=== PATIENT | female | born 1995 | race Two or more races ===

== ENCOUNTER 2016-07-14 09:03 | Emergency (ER) | payer SELFPAY ==
[~2016-07-14] VITALS: Ht 144.8 cm; Wt 52.2 kg
[~2016-07-14 09:03] MED LIST: CIPROFLOXACIN500 M2 ORAL; KEFLEX500 MG ORAL; NKM; NORCO 5-325 TA1 EACH; ZOFRAN4 MG
[2016-07-14] MEDS ORDERED: NKM (09:26)
[2016-07-14] MEDS ORDERED: Famotidine 20 MG/ 2ML VIAL IVP ONE (09:45)
[2016-07-14 10:19] LABS: BASOPHILS % (AUTO) 1.4 % (0.0-2.0); EOSINOPHILS % (AUTO) 10.3 % (0.0-3.0); LYMPHOCYTES % (AUTO) 34.6 % (20.0-45.0); MEAN CORPUSCULAR HEMOGLOBIN 24.9 PG (27.0-31.0); MEAN CORPUSCULAR HGB CONC 31.7 G/DL (32.0-36.0); MEAN CORPUSCULAR VOLUME 79 FL (80-99); MEAN PLATELET VOLUME 7.3 FL (6.5-10.1); MONOCYTES % (AUTO) 6.5 % (1.0-10.0); NEUTROPHILS % (AUTO) 47.2 % (45.0-75.0); PLATELET COUNT 251 K/UL (150-450); RED BLOOD COUNT 4.79 M/UL (4.20-5.40); RED CELL DISTRIBUTION WIDTH 16.9 % (11.6-14.8); WHITE BLOOD COUNT 6.5 K/UL (4.8-10.8)
[2016-07-14 10:26] LABS: APPEARANCE,URINE SLIGHTLY CLOUDY; KETONES,URINE NEGATIVE (NEGATIVE); LEUKOCYTE ESTERASE ,URINE 3+ (NEGATIVE); NITRITE,URINE NEGATIVE (NEGATIVE); PH,URINE 5 (4.5-8.0); PROTEIN,URINE 1+ (NEGATIVE); UROBILINOGEN,URINE NORMAL MG/DL (0.0-1.0)
[2016-07-14 10:39] LABS: ALANINE AMINOTRANSFERASE 11 U/L (3-33); ALBUMIN/GLOBULIN RATIO 1.6 (1.0-2.7); ANION GAP 12 (5-15); ASPARTATE AMINO TRANSFERASE 14 U/L (5-40); CALCIUM 8.8 mg/dL (8.6-10.2); CARBON DIOXIDE 26 mEQ/L (20-30); CHLORIDE 103 mEQ/L (98-107); CREATININE 0.6 mg/dL (0.5-0.9); GLOMERULAR FILTRATION RATE > 60 mL/min (>60); HEMOLYSIS 3; LIPASE 22 U/L (< 60); POTASSIUM 4.1 mEQ/L (3.4-4.9); SODIUM 141 mEQ/L (135-145); TOTAL PROTEIN 6.3 g/dL (6.6-8.7)
[2016-07-14 10:52] LABS: BACTERIA,URINE MODERATE /HPF; MUCUS,URINE MODERATE /LPF (NONE/OCC); RBC,URINE 0-2 /HPF (0 - 2); SQUAMOUS EPITHELIAL CELL,UR MANY /LPF (NONE/OCC)
[2016-07-14] MEDS ORDERED: BENTYL10 MG ORAL (11:05)
[2016-07-14] MEDS ORDERED: KEFLEX500 MG ORAL (11:05)
[2016-07-14] MEDS ORDERED: ZOFRAN ODT4 MG ORAL (11:05)
[2016-07-14] MEDS ORDERED: RANITIDINE HCL150 MG ORAL (11:05)
[2016-07-14] MEDS ORDERED: Morphine Sulfate 4mg/ml Inj IVP ONE (11:15)
[2016-07-14 11:30] VITALS: BP 100/56
[2016-07-14 11:57] VITALS: BP 100/56
--- NOTE | 2016-07-14 13:14 | Emergency Room Report ---
History of Present Illness General Chief Complaint: Abdominal Pain Source: Patient Present Illness HPI 20-year-old female presents to ED for evaluation. Patient states she's having abdominal pain with nausea and vomiting which started yesterday and got worse today. Pain is epigastric, sharp, 9/10, nonradiating. No other aggravating or relieving factors. Denies chest pain or shortness of breath. Denies fevers chills. Denies flank pain. Denies dysuria or hematuria. No aggravating or relieving factors. Denies any other associated symptom Allergies: Coded Allergies: No Known Allergies (Unverified , 08/13/14) Patient History Past Medical History: none Past Surgical History: none Pertinent Family History: none Social History: Denies: alcohol use, drug use, smoking Last Menstrual Period: 07/07/2016 Now: No : 1 Para: 1 Immunizations: UTD Reviewed Nursing Documentation: PMH: Agreed, PSxH: Agreed Nursing Documentation-PMH Past Medical History: No Stated History Review of Systems All Other Systems: negative except mentioned in HPI Physical Exam Vital Signs Date Time Temp Pulse Resp B/P Pulse Ox O2 Delivery O2 Flow Rate FiO2 07/14/16 09:21 97.7 69 16 125/70 99 Room Air Sp02 EP Interpretation: reviewed, normal General Appearance: no apparent distress, alert, GCS 15, non-toxic Head: normocephalic, atraumatic Eyes: bilateral eye PERRL, bilateral eye normal inspection ENT: hearing grossly normal, normal pharynx, no angioedema, normal voice Neck: full range of motion, supple/symm/no masses Respiratory: chest non-tender, lungs clear, normal breath sounds, speaking full sentences Cardiovascular #1: regular rate, rhythm, no edema Cardiovascular #2: 2+ carotid (R), 2+ carotid (L), 2+ radial (R), 2+ radial (L) , 2+ dorsalis pedis (R), 2+ dorsalis pedis (L) Gastrointestinal: normal bowel sounds, soft, non-distended, no guarding, no rebound, tenderness - epigastric Rectal: deferred Genitourinary: normal inspection, no CVA tenderness Musculoskeletal: back normal, gait/station normal, normal range of motion, non- tender Neurologic: alert, oriented x3, responsive, motor strength/tone normal, sensory intact, speech normal Psychiatric: judgement/insight normal, memory normal, mood/affect normal, no suicidal/homicidal ideation Reflexes: 3+ bicep (R), 3+ bicep (L), 3+ tricep (R), 3+ tricep (L), 3+ knee (R) , 3+ knee (L) Skin: normal color, no rash, warm/dry, well hydrated Lymphatic: no adenopathy Medical Decision Making Diagnostic Impression: Primary Impression: Gastritis Qualified Codes: K29.00 - Acute gastritis without bleeding Additional Impression: UTI (urinary tract infection) Qualified Codes: N39.0 - Urinary tract infection, site not specified ER Course Hospital Course 20-year-old F presents to ED with epigastric pain with N/V. differential diagnosis: gastritis, SBO, cholecystits Clinical course Patient placed on stretcher. On monitor technician. After initial history and physical I ordered labs, IV fluids, Zofran and pepcid Labs - no leukocytosis, no electrolyte abnormalities, LFTs normal, UA + bacteria Upon reassessment, patient states pain has improved. findings consistent with gastritis I feel this is a highly complex case requiring extensive working including EKG/ Rhythm strip, Xray/CT/US, Blood/urine lab work, repeat exams while in ED, and administration of strong opiates/narcotics for pain control, admission to hospital or close patient follow up. Diagnosis - gastritis, UTI Stable and discharged to home with prescriptions for Zantac, zofran, keflex, bentyl. Followup with PMD. Return to ED if symptoms recur or worsen Labs Test 07/14/16 10:00 White Blood Count 6.5 K/UL (4.8-10.8) Red Blood Count 4.79 M/UL (4.20-5.40) Hemoglobin 11.9 G/DL (12.0-16.0) Hematocrit 37.6 % (37.0-47.0) Mean Corpuscular Volume 79 FL (80-99) Mean Corpuscular Hemoglobin 24.9 PG (27.0-31.0) Mean Corpuscular Hemoglobin Concent 31.7 G/DL (32.0-36.0) Red Cell Distribution Width 16.9 % (11.6-14.8) Platelet Count 251 K/UL (150-450) Mean Platelet Volume 7.3 FL (6.5-10.1) Neutrophils (%) (Auto) 47.2 % (45.0-75.0) Lymphocytes (%) (Auto) 34.6 % (20.0-45.0) Monocytes (%) (Auto) 6.5 % (1.0-10.0) Eosinophils (%) (Auto) 10.3 % (0.0-3.0) Basophils (%) (Auto) 1.4 % (0.0-2.0) Urine Color Yellow Urine Appearance Slightly cloudy Urine pH 5 (4.5-8.0) Urine Specific [place] 1.025 (1.005-1.035) Urine Protein 1+ (NEGATIVE) Urine Glucose (UA) Negative (NEGATIVE) Urine Ketones Negative (NEGATIVE) Urine Occult Blood Negative (NEGATIVE) Urine Nitrite Negative (NEGATIVE) Urine Bilirubin Negative (NEGATIVE) Urine Urobilinogen Normal MG/DL (0.0-1.0) Urine Leukocyte Esterase 3+ (NEGATIVE) Urine RBC 0-2 /HPF (0 - 2) Urine WBC 5-10 /HPF (0 - 2) Urine Squamous Epithelial Cells Many /LPF (NONE/OCC) Urine Bacteria Moderate /HPF (NONE) Urine Mucus Moderate /LPF (NONE/OCC) Urine HCG, Qualitative Negative Sodium Level 141 mEQ/L (135-145) Potassium Level 4.1 mEQ/L (3.4-4.9) Chloride Level 103 mEQ/L (98-107) Carbon Dioxide Level 26 mEQ/L (20-30) Anion Gap 12 (5-15) Blood Urea Nitrogen 13 mg/dL (7-23) Creatinine 0.6 mg/dL (0.5-0.9) Estimat Glomerular Filtration Rate > 60 mL/min (>60) Glucose Level 96 mg/dL (74-106) Calcium Level 8.8 mg/dL (8.6-10.2) Total Bilirubin 0.8 mg/dL (0.0-1.2) Aspartate Amino Transf (AST/SGOT) 14 U/L (5-40) Alanine Aminotransferase (ALT/SGPT) 11 U/L (3-33) Alkaline Phosphatase 62 U/L (35-104) Total Protein 6.3 g/dL (6.6-8.7) Albumin 3.9 g/dL (3.5-5.2) Globulin 2.4 g/dL Albumin/Globulin Ratio 1.6 (1.0-2.7) Lipase 22 U/L (< 60) Last Vital Signs Date Time Temp Pulse Resp B/P Pulse Ox O2 Delivery O2 Flow Rate FiO2 07/14/16 11:58 97.7 07/14/16 11:57 75 16 100/56 100 Room Air Status: improved Disposition: HOME, SELF-CARE Condition: Stable Scripts Dicyclomine Hcl* (BENTYL*) 10 Mg Capsule 10 MG ORAL FOUR TIMES A DAY, #20 CAP Prov: EDILBERTO THIBODEAUX M.D. 07/14/16 Ondansetron Odt* (ZOFRAN ODT*) 4 Mg Tab.rapdis 4 MG ORAL Q6H Y for Nausea & Vomiting, #30 TAB 0 Refills Prov: EDILBERTO THIBODEAUX M.D. 07/14/16 Ranitidine Hcl* (ZANTAC*) 150 Mg Tablet 150 MG ORAL TWICE A DAY, #30 TAB Prov: EDILBERTO THIBODEAUX M.D. 07/14/16 Cephalexin* (KEFLEX*) 500 Mg Capsule 500 MG ORAL Q6H, #28 CAP 0 Refills Prov: EDILBERTO THIBODEAUX M.D. 07/14/16 Patient Instructions: Gastritis, Adult, [id number] EDILBERTO THIBODEAUX M.D. Jul 14, 2016 13:13
== END 2016-07-14 12:19 | disposition home or self-care (01) ==
LOC: EMR 09:35
DX: K29.70 Gastritis, unspecified, without bleeding (principal); N39.0 Urinary tract infection, site not specified
CPT/HCPCS: 36415; 80053; 81003; 81025; 83690; 85025; 87086; 96360; 96374; 96375; 99284; J2270; J2405; J7040; S0028

== ENCOUNTER 2016-07-19 12:45 | Inpatient (IN) | payer SELFPAY ==
[~2016-07-19] VITALS: Ht 144.8 cm; Wt 54.0 kg
[~2016-07-19 12:45] MED LIST changes: +BENTYL10 MG ORAL; +RANITIDINE HCL150 MG ORAL; +ZOFRAN ODT4 MG ORAL
[2016-07-19 13:00] VITALS: BP 117/73
[2016-07-19] MEDS ORDERED: Famotidine 20 MG/ 2ML VIAL IVP ONE (13:30)
[2016-07-19 13:37] LABS: APPEARANCE,URINE CLEAR; KETONES,URINE NEGATIVE (NEGATIVE); LEUKOCYTE ESTERASE ,URINE 1+ (NEGATIVE); NITRITE,URINE NEGATIVE (NEGATIVE); PH,URINE 6.5 (4.5-8.0); PROTEIN,URINE NEGATIVE (NEGATIVE); UROBILINOGEN,URINE NORMAL MG/DL (0.0-1.0)
[2016-07-19 13:49] LABS: BACTERIA,URINE FEW /HPF; RBC,URINE 0-2 /HPF (0 - 2); SQUAMOUS EPITHELIAL CELL,UR OCCASIONAL /LPF (NONE/OCC)
[2016-07-19 13:51] LABS: BASOPHILS % (AUTO) 0.9 % (0.0-2.0); EOSINOPHILS % (AUTO) 7.6 % (0.0-3.0); LYMPHOCYTES % (AUTO) 27.7 % (20.0-45.0); MEAN CORPUSCULAR HEMOGLOBIN 25.1 PG (27.0-31.0); MEAN CORPUSCULAR VOLUME 79 FL (80-99); MEAN PLATELET VOLUME 7.2 FL (6.5-10.1); MONOCYTES % (AUTO) 7.1 % (1.0-10.0); NEUTROPHILS % (AUTO) 56.7 % (45.0-75.0); PLATELET COUNT 266 K/UL (150-450); RED BLOOD COUNT 4.83 M/UL (4.20-5.40); RED CELL DISTRIBUTION WIDTH 16.6 % (11.6-14.8); WHITE BLOOD COUNT 9.4 K/UL (4.8-10.8)
[2016-07-19 14:13] LABS: ALANINE AMINOTRANSFERASE 10 U/L (3-33); ALBUMIN/GLOBULIN RATIO 1.6 (1.0-2.7); ANION GAP 15 (5-15); ASPARTATE AMINO TRANSFERASE 15 U/L (5-40); CARBON DIOXIDE 26 mEQ/L (20-30); CHLORIDE 99 mEQ/L (98-107); CREATININE 0.8 mg/dL (0.5-0.9); GLOMERULAR FILTRATION RATE > 60 mL/min (>60); HEMOLYSIS 0; LIPASE 31 U/L (< 60); POTASSIUM 4.1 mEQ/L (3.4-4.9); SODIUM 140 mEQ/L (135-145); TOTAL PROTEIN 6.5 g/dL (6.6-8.7)
[2016-07-19 14:16] LABS: PROTHROMBIN TIME 10.3 SEC (9.30-11.50)
--- NOTE | 2016-07-19 15:28 | Emergency Room Report ---
History of Present Illness General Chief Complaint: Abdominal Pain Source: Patient (Yossi Houston) Present Illness HPI Patient is a 20-year-old female presented after having increased epigastric pain. Patient had gradual onset of symptoms of the past 2 days. Patient had previously had similar episodes and had been prescribed acid blockers without any improvement. Patient returned after having increased pain and vomiting. Patient denied any increased pain with Valsalva. She denied change spicy food. She denied any change with position. Patient denied being . (Yossi Houston) Allergies: Coded Allergies: FENTANYL (Verified Allergy, Severe, Elevated HR, rash, and SOB, 07/19/16) Patient History Past Medical History: see triage record Last Menstrual Period: 07/05/16 Now: No Reviewed Nursing Documentation: PMH: Agreed, PSxH: Agreed (Yossi Houston) Nursing Documentation-PMH Past Medical History: No Stated History (Yossi Houston) Review of Systems All Other Systems: negative except mentioned in HPI (Yossi Houston) Physical Exam Vital Signs Date Time Temp Pulse Resp B/P Pulse Ox O2 Delivery O2 Flow Rate FiO2 07/19/16 12:50 98.1 84 20 117/73 98 Room Air Sp02 EP Interpretation: reviewed, normal General Appearance: normal inspection, well appearing, no apparent distress, alert, GCS 15 Head: atraumatic ENT: normal ENT inspection, hearing grossly normal, normal voice Neck: normal inspection, full range of motion, supple, no bony tend Respiratory: normal inspection, lungs clear, normal breath sounds, no respiratory distress, no retraction, no wheezing Cardiovascular #1: regular rate, rhythm, no edema Gastrointestinal: normal inspection, normal bowel sounds, non tender, soft, no guarding, no hernia, tenderness - epigastric Genitourinary: no CVA tenderness Musculoskeletal: normal inspection, back normal, normal range of motion Neurologic: normal inspection, alert, responsive, speech normal Psychiatric: normal inspection, judgement/insight normal, mood/affect normal Skin: normal inspection, normal color, no rash (Yossi Houston) Medical Decision Making Diagnostic Impression: Primary Impression: Abdominal pain Qualified Codes: R10.13 - Epigastric pain Additional Impression: Allergic drug reaction Qualified Codes: T78.40XA - Allergy, unspecified, initial encounter ER Course Patient presented for abdominal pain. Differential diagnoses included ischemic bowel, appendicitis, perforated viscus, abdominal aortic aneurysm, inferior myocardial infarction, viral gastroenteritis Because of complexity of patient's case laboratory testing and imaging studies were ordered.Laboratory studies were unremarkableThe abdominal ultrasound was ordered to evaluate for possible gallstones. Labs Test 07/19/16 13:15 07/19/16 13:35 Urine Color Pale yellow Urine Appearance Clear Urine pH 6.5 (4.5-8.0) Urine Specific [place] 1.015 (1.005-1.035) Urine Protein Negative (NEGATIVE) Urine Glucose (UA) Negative (NEGATIVE) Urine Ketones Negative (NEGATIVE) Urine Occult Blood Negative (NEGATIVE) Urine Nitrite Negative (NEGATIVE) Urine Bilirubin Negative (NEGATIVE) Urine Urobilinogen Normal MG/DL (0.0-1.0) Urine Leukocyte Esterase 1+ (NEGATIVE) Urine RBC 0-2 /HPF (0 - 2) Urine WBC 2-4 /HPF (0 - 2) Urine Squamous Epithelial Cells Occasional /LPF Urine Bacteria Few /HPF (NONE) Urine HCG, Qualitative Negative White Blood Count 9.4 K/UL (4.8-10.8) Red Blood Count 4.83 M/UL (4.20-5.40) Hemoglobin 12.1 G/DL (12.0-16.0) Hematocrit 38.0 % (37.0-47.0) Mean Corpuscular Volume 79 FL (80-99) Mean Corpuscular Hemoglobin 25.1 PG (27.0-31.0) Mean Corpuscular Hemoglobin Concent 32.0 G/DL (32.0-36.0) Red Cell Distribution Width 16.6 % (11.6-14.8) Platelet Count 266 K/UL (150-450) Mean Platelet Volume 7.2 FL (6.5-10.1) Neutrophils (%) (Auto) 56.7 % (45.0-75.0) Lymphocytes (%) (Auto) 27.7 % (20.0-45.0) Monocytes (%) (Auto) 7.1 % (1.0-10.0) Eosinophils (%) (Auto) 7.6 % (0.0-3.0) Basophils (%) (Auto) 0.9 % (0.0-2.0) Prothrombin Time 10.3 SEC (9.30-11.50) Prothromb Time International Ratio 1.0 (0.9-1.1) Activated Partial Thromboplast Time 28 SEC (23-33) Sodium Level 140 mEQ/L (135-145) Potassium Level 4.1 mEQ/L (3.4-4.9) Chloride Level 99 mEQ/L (98-107) Carbon Dioxide Level 26 mEQ/L (20-30) Anion Gap 15 (5-15) Blood Urea Nitrogen 19 mg/dL (7-23) Creatinine 0.8 mg/dL (0.5-0.9) Estimat Glomerular Filtration Rate > 60 mL/min (>60) Glucose Level 103 mg/dL (74-106) Calcium Level 9.0 mg/dL (8.6-10.2) Total Bilirubin 0.3 mg/dL (0.0-1.2) Aspartate Amino Transf (AST/SGOT) 15 U/L (5-40) Alanine Aminotransferase (ALT/SGPT) 10 U/L (3-33) Alkaline Phosphatase 70 U/L (35-104) Total Protein 6.5 g/dL (6.6-8.7) Albumin 4.0 g/dL (3.5-5.2) Globulin 2.5 g/dL Albumin/Globulin Ratio 1.6 (1.0-2.7) Lipase 31 U/L (< 60) (Yossi Houston) ER Course Please see above note from Dr. Houston. The patient had delayed wait for ultrasound because an emergent procedure was being performed. So finally performed and this was unremarkable. The patient stated she was having increased amounts of pain. The patient was treated for pain. After receiving fentanyl the patient states that she started having itching around her neck and also felt weakness in her body. The patient was evaluated there was no rash on her neck. Benadryl was given to the patient. Patient was evaluated after Benadryl and at this point she was saying that her voice is weak. Differential includes adverse reaction to fentanyl, allergic reaction to fentanyl, adverse reaction to analgesia, psychogenic response. Although the latter is most probable, there is a possibility of an allergic reaction the patient is given Solu-Medrol and will be observed in the hospital. Admit telemetry to Dr. Dangelo. (Christian Sanabria M.D.) CT/MRI/US Diagnostic Results CT/MRI/US Diagnostic Results : Imaging Test Ordered: abdomen Impression normal gall bladder, pancreas, kidneys (Christian Sanabria M.D.) Last Vital Signs Date Time Temp Pulse Resp B/P Pulse Ox O2 Delivery O2 Flow Rate FiO2 07/19/16 13:00 98.1 84 20 117/73 98 Room Air Status: unchanged (Yossi Houston) Status: improved (Christian Sanabria M.D.) Disposition: ADMITTED INPATIENT Condition: Stable Scripts Tramadol Hcl* (ULTRAM*) 50 Mg Tablet 50 MG ORAL Q6H Y for For Pain, #8 TAB 0 Refills Prov: Christian Sanabria M.D. 07/19/16 Omeprazole (OMEPRAZOLE) 20 Mg Capsule.dr 20 MG ORAL DAILY, #30 CAP Prov: Christian Sanabria M.D. 07/19/16 Referrals: NOT CHOSEN LINDA/,REFERRING (PCP) Yossi Houston Jul 19, 2016 15:28 Christian Sanabria M.D. Jul 19, 2016 17:42
[2016-07-19 16:00] VITALS: BP 124/76
--- NOTE | 2016-07-19 17:44 | Diagnostic Imaging Report ---
Indications: Abdominal pain Technique: Transabdominal real-time grayscale and duplex Doppler imaging of the upper abdomen and retroperitoneum was performed. Findings: Comparison: None. Liver normal size and surface contour, parenchymal echogenicity. No focal lesions. Gallbladder unremarkable. No intraluminal stones or sludge. No mural thickening or adjacent fluid collections. Sonographic Tolliver sign not reported.. Bile ducts normal caliber. Common bile duct 4 mm. Pancreas visualized portions unremarkable. Spleen unremarkable. Right kidney unremarkable. Left kidney unremarkable. Abdominal aorta, intrahepatic portion of inferior vena cava patent, normal caliber. Duplex Doppler imaging demonstrates antegrade flow in splenic, portal, hepatic veins. No ascites. IMPRESSION: Negative abdominal ultrasound.
[2016-07-19] MEDS ORDERED: fentaNYL 100 mcg/2 mL IV ONE (17:45)
[2016-07-19] MEDS ORDERED: Mylanta II UD 30ml ORAL ONE (17:45)
[2016-07-19] MEDS ORDERED: OMEPRAZOLE20 M2 ORAL (17:48)
[2016-07-19] MEDS ORDERED: TRAMADOL HCL50 MG ORAL (17:48)
[2016-07-19 18:04] VITALS: BP 119/80
[2016-07-19] MEDS ORDERED: DiphenhydrAMINE 50mg/ml Inj IVP ONE (18:30)
[2016-07-19] MEDS ORDERED: Solu-MEDROL 125mg Inj IVP ONE (18:45)
[2016-07-19 20:31] VITALS: BP 114/79
[2016-07-19 21:13] VITALS: BP 110/72
[2016-07-20] VITALS: BP 110/68
[2016-07-20 04:20] VITALS: BP 122/57
[2016-07-20 07:20] LABS: ANION GAP 14 (5-15); CALCIUM 9.2 mg/dL (8.6-10.2); CARBON DIOXIDE 23 mEQ/L (20-30); CHLORIDE 104 mEQ/L (98-107); CREATININE 0.7 mg/dL (0.5-0.9); GLOMERULAR FILTRATION RATE > 60 mL/min (>60); HEMOLYSIS 3; POTASSIUM 4.2 mEQ/L (3.4-4.9); SODIUM 141 mEQ/L (135-145)
[2016-07-20 07:25] LABS: MEAN CORPUSCULAR HEMOGLOBIN 25.6 PG (27.0-31.0); MEAN CORPUSCULAR HGB CONC 32.5 G/DL (32.0-36.0); MEAN CORPUSCULAR VOLUME 79 FL (80-99); MEAN PLATELET VOLUME 7.7 FL (6.5-10.1); PLATELET COUNT 294 K/UL (150-450); RED BLOOD COUNT 5.05 M/UL (4.20-5.40); RED CELL DISTRIBUTION WIDTH 16.3 % (11.6-14.8); WHITE BLOOD COUNT 9.1 K/UL (4.8-10.8)
[2016-07-20 07:51] VITALS: BP 117/75
[2016-07-20 07:52] LABS: ANISOCYTOSIS 1+; BAND NEUTROPHILS % (MANUAL) 0 % (0-8); BASOPHILS % (MANUAL) 0 % (0-2); EOSINOPHILS % (MANUAL) 1 % (0-3); LYMPHOCYTES % (MANUAL) 11 % (20-45); MICROCYTES 1+; NEUTROPHILS % (MANUAL) 87 % (45-75); PLATELET ESTIMATE ADEQUATE; PLATELET MORPHOLOGY NORMAL; TOTAL CELLS COUNTED 100
[2016-07-20 08:16] LABS: TROPONIN I < 0.30 ng/mL (<=0.30)
[2016-07-20 11:32] VITALS: BP 110/67
--- NOTE | 2016-07-20 12:18 | Cardiac Electrophysiology PN ---
Subjective Subjective [id number]. ALOC. Patient stated that she faked it. Hemodynamically stable. ECG normal. GEt ECho. DW Dr Funes Objective Last 24 Hour Vital Signs Date Time Temp Pulse Resp B/P Pulse Ox O2 Delivery O2 Flow Rate FiO2 07/20/16 11:32 97.9 69 18 110/67 99 Room Air 07/20/16 09:51 97.9 07/20/16 07:57 74 07/20/16 07:51 97.9 86 18 117/75 98 Room Air 07/20/16 04:20 97.7 71 20 122/57 100 Room Air 07/20/16 04:00 60 07/20/16 00:00 97.0 60 20 110/68 100 Room Air 07/20/16 00:00 66 07/19/16 21:13 70 18 110/72 98 Room Air 07/19/16 20:45 98.1 76 20 114/79 98 Room Air 07/19/16 20:31 98.1 76 20 114/79 98 Room Air 07/19/16 18:37 98.1 07/19/16 18:04 98.1 76 20 119/80 98 Room Air 07/19/16 16:00 98.1 87 20 124/76 98 Room Air 07/19/16 13:00 98.1 84 20 117/73 98 Room Air 07/19/16 12:50 98.1 84 20 117/73 98 Room Air Intake and Output 07/19/16 07/20/16 19:00 07:00 Intake Total 657.5 ml Balance 657.5 ml Intake Oral 120 ml IV Total 537.5 ml # Voids 1 1 Laboratory Tests Test 07/19/16 13:00 07/19/16 13:15 07/19/16 13:35 07/20/16 04:55 Urine Opiates Screen Negative (NEGATIVE) Urine Barbiturates Screen Negative (NEGATIVE) Phencyclidine (PCP) Screen Negative (NEGATIVE) Urine Amphetamines Screen Negative (NEGATIVE) Urine Benzodiazepines Screen Negative (NEGATIVE) Urine Cocaine Screen Negative (NEGATIVE) Urine Marijuana (THC) Screen Negative (NEGATIVE) Urine Color Pale yellow Urine Appearance Clear Urine pH 6.5 (4.5-8.0) Urine Specific [place] 1.015 (1.005-1.035) Urine Protein Negative (NEGATIVE) Urine Glucose (UA) Negative (NEGATIVE) Urine Ketones Negative (NEGATIVE) Urine Occult Blood Negative (NEGATIVE) Urine Nitrite Negative (NEGATIVE) Urine Bilirubin Negative (NEGATIVE) Urine Urobilinogen Normal MG/DL (0.0-1.0) Urine Leukocyte Esterase 1+ (NEGATIVE) H Urine RBC 0-2 /HPF (0 - 2) Urine WBC 2-4 /HPF (0 - 2) Urine Squamous Epithelial Cells Occasional /LPF Urine Bacteria Few /HPF (NONE) Urine HCG, Qualitative Negative White Blood Count 9.4 K/UL (4.8-10.8) 9.1 K/UL (4.8-10.8) Red Blood Count 4.83 M/UL (4.20-5.40) 5.05 M/UL (4.20-5.40) Hemoglobin 12.1 G/DL (12.0-16.0) 12.9 G/DL (12.0-16.0) Hematocrit 38.0 % (37.0-47.0) 39.7 % (37.0-47.0) Mean Corpuscular Volume 79 FL (80-99) L 79 FL (80-99) L Mean Corpuscular Hemoglobin 25.1 PG (27.0-31.0) L 25.6 PG (27.0-31.0) L Mean Corpuscular Hemoglobin Concent 32.0 G/DL (32.0-36.0) 32.5 G/DL (32.0-36.0) Red Cell Distribution Width 16.6 % (11.6-14.8) H 16.3 % (11.6-14.8) H Platelet Count 266 K/UL (150-450) 294 K/UL (150-450) Mean Platelet Volume 7.2 FL (6.5-10.1) 7.7 FL (6.5-10.1) Neutrophils (%) (Auto) 56.7 % (45.0-75.0) % (45.0-75.0) Lymphocytes (%) (Auto) 27.7 % (20.0-45.0) % (20.0-45.0) Monocytes (%) (Auto) 7.1 % (1.0-10.0) % (1.0-10.0) Eosinophils (%) (Auto) 7.6 % (0.0-3.0) H % (0.0-3.0) Basophils (%) (Auto) 0.9 % (0.0-2.0) % (0.0-2.0) Prothrombin Time 10.3 SEC (9.30-11.50) Prothromb Time International Ratio 1.0 (0.9-1.1) Activated Partial Thromboplast Time 28 SEC (23-33) Sodium Level 140 mEQ/L (135-145) 141 mEQ/L (135-145) Potassium Level 4.1 mEQ/L (3.4-4.9) 4.2 mEQ/L (3.4-4.9) Chloride Level 99 mEQ/L (98-107) 104 mEQ/L (98-107) Carbon Dioxide Level 26 mEQ/L (20-30) 23 mEQ/L (20-30) Anion Gap 15 (5-15) 14 (5-15) Blood Urea Nitrogen 19 mg/dL (7-23) 18 mg/dL (7-23) Creatinine 0.8 mg/dL (0.5-0.9) 0.7 mg/dL (0.5-0.9) Estimat Glomerular Filtration Rate > 60 mL/min (>60) > 60 mL/min (>60) Glucose Level 103 mg/dL (74-106) 147 mg/dL (74-106) H Calcium Level 9.0 mg/dL (8.6-10.2) 9.2 mg/dL (8.6-10.2) Total Bilirubin 0.3 mg/dL (0.0-1.2) Aspartate Amino Transf (AST/SGOT) 15 U/L (5-40) Alanine Aminotransferase (ALT/SGPT) 10 U/L (3-33) Alkaline Phosphatase 70 U/L (35-104) Total Protein 6.5 g/dL (6.6-8.7) L Albumin 4.0 g/dL (3.5-5.2) Globulin 2.5 g/dL Albumin/Globulin Ratio 1.6 (1.0-2.7) Lipase 31 U/L (< 60) Thyroid Stimulating Hormone (TSH) 1.150 uIU/mL (0.300-4.500) Differential Total Cells Counted 100 Neutrophils % (Manual) 87 % (45-75) H Lymphocytes % (Manual) 11 % (20-45) L Monocytes % (Manual) 1 % (1-10) Eosinophils % (Manual) 1 % (0-3) Basophils % (Manual) 0 % (0-2) Band Neutrophils 0 % (0-8) Platelet Estimate Adequate Platelet Morphology Normal Red Blood Cell Morphology Anisocytosis 1+ Microcytosis 1+ Troponin I < 0.30 ng/mL (<=0.30) KEY CARTAGENA Jul 20, 2016 12:18
[2016-07-20] MEDS: traMADol 50mg tab ORAL PRN ×2 (12:32→18:54)
[2016-07-20 16:00] VITALS: BP 110/69
--- NOTE | 2016-07-20 16:00 | Cardiology Report ---
APPROVED REPORT EXAM: Two-dimensional and M-mode echocardiogram with Doppler and color Doppler. INDICATION Syncope M-Mode DIMENSIONS IVSd0.6 (0.7-1.1cm)Left Atrium (MM)3.7 (1.6-4.0cm) LVDd3.4 (3.5-5.6cm)Aortic Root3.3 (2.0-3.7cm) PWd1.1 (0.7-1.1cm)Aortic Cusp Exc.2.3 (1.5-2.0cm) LVDs2.0 (2.5-4.0cm) PWs1.3 cm Normal left ventricular chamber size, systolic function and wall motion. Left ventricular ejection fraction estimated to be 70 %. No evidence of left ventricular hypertrophy. No evidence of pericardial effusion. All other cardiac chamber sizes are within normal limits. Normal appearing aortic, mitral, pulmonic and tricuspid valves. No evidence of mitral annulus or aortic root calcification. IVC at normal size with physiologic collapse. A color flow and spectral Doppler study was performed and revealed: No aortic regurgitation. Trace mitral regurgitation. Mitral inflow indicates normal left ventricular diastolic function. Trace tricuspid regurgitation. Tricuspid systolic velocities suggests peak right ventricular systolic pressure of 27 mmHg. Mild pulmonic regurgitation present.
--- NOTE | 2016-07-20 16:22 | Cardiology Report ---
APPROVED REPORT EKG Measurement Heart [id number] Sinus rhythm with premature atrial complexes with aberrant conduction Otherwise normal ECG
--- NOTE | 2016-07-20 16:42 | Consultation ---
Consult Note Consult Note Patient seen and assessed in the morning, currently complainin of intermittent abdominal pain, does not relay any history of , otherwise is stable. Has no hematological or oncological issues. Consultation note to follow. Damion Clark. Jul 20, 2016 16:42
--- NOTE | 2016-07-20 17:49 | History and Physical Report ---
DATE OF ADMISSION: 07/19/2016 HISTORY OF PRESENT ILLNESS: The patient is a 20-year-old female who came with abdominal pain, vomiting blood, dizziness, and headache. The patient also has history of peptic ulcer disease and was admitted in the past and the patient also had possible allergic reaction to Fentanyl. She became unresponsive, cannot remember the details of the event and the patient had a very brief bouts of tachycardia followed by bradycardia, they could not arouse the patient and so rapid response was called in. ER doctor evaluated the patient. However the patient was responsive to deep noxious stimuli and vital signs stabilized very rapidly and consults were made. PAST MEDICAL HISTORY: Peptic ulcer disease . PAST SURGICAL HISTORY: None. MEDICATIONS: None. ALLERGIES: Fentanyl now. SOCIAL HISTORY: Denies smoking, alcohol, or illicit drugs. FAMILY HISTORY: Noncontributory. REVIEW OF SYSTEMS: HEENT: History of headaches. Respiratory: Denies shortness of breath. Denies cough. Cardiovascular: Denies chest pain. Gastrointestinal: Did have vomiting blood x1. Abdominal pain also x 1 day. No diarrhea. The patient does have severe heart burn. Extremities: Denies pain in the lower extremities. Central Nervous System: No change in vision or speech pattern. [place] weak last night, altered, and did not remember details of what happened, could have been attributed to reaction to Fentanyl. PHYSICAL EXAMINATION: VITAL SIGNS: Temperature 98.1 degrees, pulse 86, and blood pressure 130/79. HEENT: PERRLA. NECK: Supple. No lymphadenopathy. CHEST: Clear to auscultation. GASTROINTESTINAL: Soft. Epigastric tenderness but no rebound. Positive bowel sounds. No organomegaly. EXTREMITIES: No edema. NEUROLOGIC: alert and oriented at this point. LABORATORY AND DIAGNOSTIC DATA: WBC 9.4, hemoglobin 12, and platelet 266,000. Sodium 140, potassium 4.1, BUN ____ creatinine . ASSESSMENT AND PLAN: 1. Altered mental status. 2. Vague tachycardia followed by bradycardia. 3. Possible allergic reaction to Fentanyl. 4. Hematemesis. 5. Gastrointestinal bleed. 6. Abdominal pain. I was asked Dr. Blanco, Dr. Funes, Dr. Christian, Dr. Worley, Dr. Rosales, Dr. Diaz, Dr. Clark, Dr. Landers, Dr. Fry see the patient for the above-mentioned diagnoses and treatment. Simeon Dangelo M.D. DR: Claudia JOB#: [id number] CC:
--- NOTE | 2016-07-20 19:39 | Consultation ---
DATE OF CONSULTATION: 07/20/2016 CONSULTING PHYSICIAN: Kole Funes M.D. ATTENDING PHYSICIAN: Simeon Dangelo M.D. HISTORY OF PRESENT ILLNESS: This is a 20-year-old female with unknown psychiatric history, who has been admitted to the hospital with chief complaint of increased epigastric pain that is 10/10. The patient's pain started 2 days prior to the admission and she stated that she has had similar episode a while back which has improved with taking H2 blockers. The patient was given fentanyl patch and started the patient on the evaluation. Question the patient was administered this fentanyl patch and became unresponsive. Upon evaluation by the ER doctor, all the vitals were normal; however, the patient was unresponsive, her eyes were closed. During initial evaluation with the nurse present, the patient is still complaining of pain and was insisting that the pain is 7/10. She denied any depressive, manic, psychotic, or anxiety symptoms. No suicidal or homicidal ideation. She denied any similar episodes in the past. When I went back in the room without the presence of the nurse, the patient admitted that she has been faking these symptoms; however, she stated my eyes were closed and when the nurse was instructing me, "one nurse told me to open your eyes, I was unable to open my eyes. When the pain was in my hand, I was able to open my eyes." The patient stated that currently she does not have pain. Again, when I asked her in regard to stressors in her life, she denied any symptoms. PAST PSYCHIATRIC HISTORY: She denied any psychiatric history in the past. She denied taking any psychotropic medications in the past. She denied any suicide attempts in the past. She has never seen a psychiatrist in the past. PAST MEDICAL HISTORY: History of epigastric pain in the past. ALLERGIES: Fentanyl, however, I am not sure if the patient is allergic to fentanyl patch or if she has been "faking the symptoms." PAST SUBSTANCE ABUSE HISTORY: No history of illicit drug use or alcohol. She denies even using marijuana. MENTAL STATUS EXAMINATION: The patient is alert, oriented x4. She is pleasant. Mood is severely dysphoric. Affect is flat, congruent with mood. Thought process is goal-oriented. Thought content, no suicidal or homicidal ideations. No delusions. Cognition is intact including memory, concentration, and attention. ASSESSMENT: AXIS I Rule out conversion disorder. AXIS II Deferred. AXIS III Epigastric pain. AXIS Unknown. AXIS V 10 The patient may be suffering from conversion disorder also called functional neurological symptom disorder in this condition in which the patient shows psychological stress in physical ways. The patient manifests physical symptoms that start the mental and emotional crisis or a stressful incident of some kind and convert to a physical problem. This patient, however, is denying any stressors in her life. I asked her if I would be able to speak to her family member. She gave me the number of her sister, Gladis, who is [place]ian-speaking. I passed the number to the social workers in order to gather information. At the time of evaluation, the patient is not an imminent danger to self nor others, and she is not meeting the criteria of 5150. I do not believe the patient is suffering from any serious medical conditions. PLAN: 1. The patient will be discharged after medical clearance by Dr. Dangelo. 2. The social service manager will gather collateral information from the sister. 3. No medication at this time. 4. I suggest that the patient would be referred to a psychologist for further evaluation. Chikis Gustafson JOB#: [id number] CC:
[2016-07-20 20:00] VITALS: BP 120/73
--- NOTE | 2016-07-20 20:39 | Consultation ---
DATE OF CONSULTATION: 07/20/2016 CARDIOLOGY CONSULTATION REFERRING PHYSICIAN: Simeon Dangelo M.D. REASON FOR CONSULTATION: Altered level of consciousness and tachycardia. HISTORY OF PRESENT ILLNESS: The patient is a 20-year-old lady with no major past medical history, on no medication, presented to the emergency room with increasing abdominal pain, that has been going worse over the last two days. The patient has had similar symptoms and was treated with acid-blockers without any improvement. The patient came back with increased abdominal pain. The patient subsequently underwent abdominal ultrasound, which was unremarkable. The patient still having itching around her neck and also weakness in the body. There was no rash on the neck and the patient received Benadryl. The patient because of possibility of allergic reaction, received Solu-Medrol. The patient also had episode of loss of consciousness, but the vital signs were stable. Cardiology consultation was obtained for further evaluation. At this time, the patient states that she actually faked loss of consciousness and she was aware of what was happening. She was just tired of having abdominal pain and wanted to get more attention. Dr. Funes, the psychiatry is also at bedside. PAST MEDICAL HISTORY: History of abdominal pain. SOCIAL HISTORY: She lives at home. Does not smoke or drink alcohol per records. FAMILY HISTORY: Noncontributory. REVIEW OF SYSTEMS: Review of systems was performed and was negative other than what was mentioned in the history of present illness. PHYSICAL EXAMINATION: VITAL SIGNS: Blood pressure of 110/67, pulse 70, respirations 18, and she is afebrile. HEAD AND NECK: No JVD or carotid bruit. LUNGS: Clear. CARDIOVASCULAR: Regular S1 and S2 with no gallop or murmur. ABDOMEN: Soft and nontender. EXTREMITIES: No pitting edema. LABORATORY AND DIAGNOSTIC DATA: Her 12-lead EKG showed sinus rhythm with occasional PVCs and otherwise completely normal. Electrocardiogram data rhythm strips showed no evidence of tachycardia. Her labs show white count 9.9, hemoglobin 12.9, hematocrit of 39.7, and platelet 294,000. Sodium 141, potassium 4.2, BUN of 18, creatinine 0.7, and glucose of 147. INR is 1. Urine toxicology screen is negative. ASSESSMENT AND PLAN: 1. Episode of loss of consciousness. The patient was hemodynamically stable at that time. The patient now states that she actually faked that episode to get more attention. The patient has been evaluated by Dr. Funes from psychiatric perspective. 2. Questionable allergic reaction. 3. Questionable tachycardia. I do not see any evidence of tachycardia based on telemetry rhythm strips. The case was discussed in detail with Dr. Funes. Thank you very much, Dr. Dangelo, for allowing me to participate in the care of this patient. Please do not hesitate to contact me for any questions regarding my evaluation. Domingo Chacon M.D. DR: CRUZ JOB#: [id number] CC:
--- NOTE | 2016-07-20 21:30 | General Progress Note ---
Assessment/Plan Assessment/Plan GI consult Dictated EGD in am Thank you Emily Subjective Allergies: Coded Allergies: FENTANYL (Verified Allergy, Severe, Elevated HR, rash, and SOB, 07/19/16) Objective Last 24 Hour Vital Signs Date Time Temp Pulse Resp B/P Pulse Ox O2 Delivery O2 Flow Rate FiO2 07/20/16 16:00 73 07/20/16 13:31 97.9 07/20/16 11:49 62 07/20/16 11:32 97.9 69 18 110/67 99 Room Air 07/20/16 09:51 97.9 07/20/16 07:57 74 07/20/16 07:51 97.9 86 18 117/75 98 Room Air 07/20/16 04:20 97.7 71 20 122/57 100 Room Air 07/20/16 04:00 60 07/20/16 00:00 97.0 60 20 110/68 100 Room Air 07/20/16 00:00 66 Intake and Output 07/19/16 07/20/16 19:00 07:00 Intake Total 657.5 ml Balance 657.5 ml Intake Oral 120 ml IV Total 537.5 ml # Voids 1 1 Laboratory Tests 07/20/16 04:55: White Blood Count 9.1, Red Blood Count 5.05, Hemoglobin 12.9, Hematocrit 39.7, Mean Corpuscular Volume 79L, Mean Corpuscular Hemoglobin 25.6L, Mean Corpuscular Hemoglobin Concent 32.5, Red Cell Distribution Width 16.3H, Platelet Count 294, Mean Platelet Volume 7.7, Neutrophils (%) (Auto) , Lymphocytes (%) (Auto) , Monocytes (%) (Auto) , Eosinophils (%) (Auto) , Basophils (%) (Auto) , Differential Total Cells Counted 100, Neutrophils % ( Manual) 87H, Lymphocytes % (Manual) 11L, Monocytes % (Manual) 1, Eosinophils % ( Manual) 1, Basophils % (Manual) 0, Band Neutrophils 0, Platelet Estimate Adequate, Platelet Morphology Normal, Red Blood Cell Morphology , Anisocytosis 1 +, Microcytosis 1+, Sodium Level 141, Potassium Level 4.2, Chloride Level 104, Carbon Dioxide Level 23, Anion Gap 14, Blood Urea Nitrogen 18, Creatinine 0.7, Estimat Glomerular Filtration Rate > 60, Glucose Level 147H, Calcium Level 9.2, Troponin I < 0.30 Height (Feet): 4 Height (Inches): 9.00 Weight (Pounds): 119 ANGIE CARTWRIGHT Jul 20, 2016 21:30
--- NOTE | 2016-07-20 23:03 | Consultation ---
Consult Note Consult Note NEUROLOGY CONSULTATION: Full note dictated #[id number] 20 y/o, RH, HF with PH of gastritis. She was admitted for a 5 day history of epigastric abdominal pain, vomiting blood, dizziness, and headache. She was given Fentanyl for the pain and following that became unresponsive for about 30 minutes. She cannot remember the details of the event. ON EXAM: Normal neurologic exam. IMPRESSION: Possible intoxication with Fentanyl. REC: No further neurologic intervention needed W/U GI problems as per Dr. Diaz. Roopa Blanco M.D., M.S.P.H. ROOPA BLANCO Jul 20, 2016 23:03
[2016-07-21] VITALS (8 sets, daily range): BP systolic 103–117; BP diastolic 64–77
--- NOTE | 2016-07-21 00:08 | Consultation ---
DATE OF CONSULTATION: 07/20/2016 GASTROLOGY CONSULTATION REFERRING PHYSICIAN: Simeon Dangelo M.D. CHIEF COMPLAINT: I was asked to see this patient by Dr. Simeon Dangelo for evaluation of abdominal pain, vomiting and hematemesis. HISTORY OF PRESENT ILLNESS: The patient is a 20-year-old woman, who came to the hospital in the emergency room twice once about 5 days ago and once yesterday with abdominal pain, nausea, and vomiting. She also reports of hematemesis presents with persistent epigastric abdominal pain. She has not had any gastrointestinal history before and has not had endoscopy before. She had some reaction to and was admitted. She now feels better but she still has abdominal pain. PAST MEDICAL HISTORY: Otherwise negative. FAMILY HISTORY: Noncontributory. SOCIAL HISTORY: The patient does not smoke or drink. REVIEW OF SYSTEMS: Otherwise negative. PHYSICAL EXAMINATION: GENERAL: The patient is a young woman in her bed seen with the nurses at bedside. HEENT: Normocephalic and atraumatic. Sclerae anicteric. Oropharynx is clear. NECK: Supple. CHEST: Clear to auscultation. CARDIOVASCULAR: Regular rhythm and rate. ABDOMEN: Soft with some mild epigastric abdominal pain. EXTREMITIES: Revealed no edema. NEUROLOGIC: Grossly nonfocal. LABORATORY DATA: Noted. ASSESSMENT: This patient presents with abdominal pain of unclear etiology. She still has some advanced tender to palpation and had a self-reported history of hematemesis. Endoscopy can be done to rule out any significant upper gastrointestinal pathology. The indications and risks were explained to the patient and informed consent was obtained. RECOMMENDATIONS: 1. NPO after midnight. 2. Endoscopy tomorrow. 3. Proton pump inhibitor. Handy Diaz M.D. DR: PANCHO JOB#: [id number] CC:
--- NOTE | 2016-07-21 01:38 | Consultation ---
DATE OF CONSULTATION: 07/20/2016 NEUROLOGY CONSULTATION REQUESTING PHYSICIAN: Simeon Dangelo M.D. HISTORY: Ms. Sharon Gallo is a 20-year-old, right-handed, lady, who does have a past history of gastritis. She was functioning relatively well until approximately 5 days ago when she started to have severe epigastric abdominal pain. She came to the [facility] emergency room to be evaluated and she was sent home on Tylenol. She was told that she had gastritis but it is uncertain if she was given any medicine for the gastritis itself. She continued to be quite uncomfortable and then on 07/19/2016, she started to have increasing abdominal pain again in the epigastric area associated with nausea, vomiting up bloody vomitus, dizziness and headache. She was again brought into the [facility] emergency room and this time she was admitted to the hospital. She was started on fentanyl for pain and just after she was given the fentanyl she became unresponsive. She was unresponsive for approximately 30 minutes and could not be aroused. This consultation was requested to evaluate the patient for her episode of unresponsiveness. At this point in time, the patient feels better. She however cannot remember what exactly happened when she had the episode of unresponsiveness. PAST MEDICAL HISTORY: Significant for gastritis. FAMILY HISTORY: One of her sisters has diabetes mellitus. PERSONAL HISTORY: Home: She lives with her mother. 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 Habits: She denies use of alcohol, tobacco, or illicit drugs. PRESENT MEDICATIONS: Include tramadol, Zantac, Tylenol, and Benadryl. PHYSICAL EXAMINATION: GENERAL: She is a well-developed, well-nourished, pleasant lady, lying in bed, in no acute distress. VITAL SIGNS: Pulse is 74 per minute, blood pressure 110/67 mmHg, respirations 18 per minute, and temperature 97.9 degrees Fahrenheit. HEAD: Normocephalic and atraumatic. NECK: No neck rigidity was observed. EENT EXAMINATION: Benign. NEUROLOGICAL EXAMINATION: MENTAL STATUS EXAMINATION: She was alert and awake. She was oriented to person, place, and time. She was able to recall 3/3 words immediately after 1 minute and after 3 minutes. She was able to remember presidents Trump and Obama but could not remember presidents prior to that. Her mathematical skills were fairly good. Her visuospatial function was impaired. SPEECH: She had no dysarthria. LANGUAGE: She had no aphasia taking into account that [place] is her second language. CRANIAL NERVE EXAMINATION: II: The visual scott were intact to confrontation testing. III, IV & : The external ocular movements were full and the pupils 3 mm in diameter, equal, round, regular and reactive to light. V: She had normal facial sensations and the temporales, masseters, and pterygoids functioned normally. VII: She had normal facial expressions and no facial asymmetry. VIII: She was able to hear well bilaterally and had no nystagmus. IX: The palate moved symmetrically on phonation. X: She had no hoarseness of voice. XI: The sternocleidomastoids and trapezii functioned normally. XII: The tongue was in the midline without any fasciculations or atrophy. MOTOR SYSTEM: The tone was normal in all four extremities. Examination of muscle mass revealed no focal wasting. Examination of power revealed grade 5/5 power in all muscle groups tested. SENSORY EXAMINATION: She had intact sensations to pinprick, light touch, and graphesthesia. COORDINATION: She performed well on [id number] and [id number]-[id number] testing. REFLEXES: 1+ bilaterally symmetrical at the biceps, triceps, brachioradialis, knees, and ankles. The plantar responses were flexor bilaterally. STANCE: She stood up with contact guard. GAIT: She walked well with contact guard. DIAGNOSTIC IMPRESSION: 1. Ms. Sharon Gallo is a 20-year-old, right-handed, lady, who does have a prior history of gastritis, who was hospitalized for a 5-day history of epigastric abdominal pain, which culminated in nausea, vomiting, throwing up bloody material and headache. She was thus hospitalized and when she was given fentanyl for pain she apparently became unresponsive and that unresponsiveness lasted for approximately 30 minutes and then resolved. At this point in time, she feels relatively well. 2. The neurological examination at this time is essentially normal. 3. The patient's history and neurological examination are most compatible with possible intoxication with fentanyl. RECOMMENDATIONS: 1. At this point in time, no further neurological intervention is needed. 2. Workup for the gastrointestinal problems should be continued as per Dr. Diaz. Thank you for entrusting me with the care of Ms. Gallo. Please do let me know if I can be of any further help. Devante Blanco M.D., M.S.P.H. DR: JOSE R JOB#: [id number] CHRISTINE
[2016-07-21] MEDS ORDERED: NS 550ML IV ONE (08:50)
--- NOTE | 2016-07-21 08:54 | Pre-Procedure Note/Attestation ---
Pre-Procedure Note/Attestation Complete Prior to Procedure Planned Procedure: not applicable Procedure Narrative: egd Indications for Procedure Pre-Operative Diagnosis: abd pain, hematemesis Attestation I attest that I discussed the nature of the procedure; its benefits; risks and complications; and alternatives (and the risks and benefits of such alternatives ), prior to the procedure, with the patient (or the patient's legal ambulatory services representative). I attest that, if there was a reasonable possibility of needing a blood transfusion, the patient (or the patient's legal ambulatory services representative) was given the [facility] standardized written summary, pursuant to the Dwayen Vicky Blood Safety Act ([place] Health and Safety Code # 1645, as amended). I attest that I re-evaluated the patient just prior to the surgery and that there has been no change in the patient's H&P, except as documented below: ANGIE CARTWRIGHT Jul 21, 2016 08:54
[2016-07-21] MEDS ORDERED: Lidocaine 1% MPF 10mg/ml 5ml ONE (09:00)
[2016-07-21] MEDS ORDERED: LR 1000ml ONE (09:00)
[2016-07-21] MEDS ORDERED: Propofol 10mg/ml 20ml IV ONE (09:00)
--- NOTE | 2016-07-21 09:02 | Endoscopy Procedure Note ---
Endoscopy Procedure Note Indication for Procedure: abd pain Procedures Performed: EGD Operative Findings/Diagnosis: normal Specimen: yes Anesthesiologist: see report Anesthesia: MAC Medication Given: fentanyl, see anesthesia record 50 yrs or older w/o bx or poly: Not Applicable 10yrs. F/U not recommended: Not Applicable If not recommended, why?: ANGIE CARTWRIGHT Jul 21, 2016 09:02
--- NOTE | 2016-07-21 09:05 | General Progress Note ---
Assessment/Plan Assessment/Plan Assessment - abd pain - improved - ? UIB (vague self reported hx) - EGD: NORMAL Recommendations - po diet - Reassurance Subjective Constitutional: Denies: malaise Allergies: Coded Allergies: FENTANYL (Verified Allergy, Severe, Elevated HR, rash, and SOB, 07/19/16) Subjective Feels OK npo for EGD Objective Last 24 Hour Vital Signs Date Time Temp Pulse Resp B/P Pulse Ox O2 Delivery O2 Flow Rate FiO2 07/21/16 08:00 97.3 78 18 110/64 99 Room Air 07/21/16 04:08 97.0 66 20 117/67 100 Room Air 07/21/16 04:00 78 07/21/16 00:10 97.9 65 18 113/73 98 Room Air 07/21/16 00:00 65 07/20/16 20:00 74 07/20/16 20:00 97.2 66 18 120/73 99 Room Air 07/20/16 16:00 73 07/20/16 16:00 97.8 66 18 110/69 99 Room Air 07/20/16 13:31 97.9 07/20/16 11:49 62 07/20/16 11:32 97.9 69 18 110/67 99 Room Air 07/20/16 09:51 97.9 Intake and Output 07/20/16 07/21/16 19:00 07:00 Intake Total 802.5 ml 450 ml Balance 802.5 ml 450 ml Intake Oral 240 ml IV Total 562.5 ml 450 ml # Voids 2 2 Height (Feet): 4 Height (Inches): 9.00 Weight (Pounds): 119 ANGIE CARTWRIGHT Jul 21, 2016 09:05
--- NOTE | 2016-07-21 09:08 | Consultation ---
History of Present Illness General Date patient seen: Jul 21, 2016 Time patient seen: 06:15 - am Chief Complaint: Abdominal Pain Referring physician: [place] Reason for Consultation: Pain Management Present Illness HPI The patient is a 20-year-old female who started to c/o abdominal pain 5 days ago in the epigastric area. She was in the ER then sent home with and returned with increased pain. In the ER Fentanyl was given and she became unresponsive and was admitted to the hospital. In the past she was on Tramadol with no SE. At this time continues to c/o abdominal pain which may be associated with gastritis. Will be going for EGD later to day with GI. At this time was started on Tramadol 50mg tabs as needed Q6H which has been reducing her pain with no SE. Social History: denies smoking tobacco, alcohol abuse and IV drug abuse. Allergies: Coded Allergies: FENTANYL (Verified Allergy, Severe, Elevated HR, rash, and SOB, 07/19/16) Medication History Scheduled Cephalexin* (Keflex*), 500 MG ORAL Q6H Cephalexin* (Keflex*), 500 MG ORAL Q6H Dicyclomine Hcl* (Bentyl*), 10 MG ORAL FOUR TIMES A DAY No Known Medications* (NKM - No Known Medications*), 0 ., (Reported) Omeprazole (Omeprazole), 20 MG ORAL DAILY Ranitidine Hcl* (Zantac*), 150 MG ORAL TWICE A DAY Scheduled PRN Ondansetron Odt* (Zofran Odt*), 4 MG ORAL Q6H PRN for Nausea & Vomiting Tramadol Hcl* (Ultram*), 50 MG ORAL Q6H PRN for For Pain Patient History Healthcare decision maker pt alert and oriented Resuscitation status Full Code Advanced Directive on File Past Medical/Surgical History Past Medical/Surgical History: (1) Gastritis (2) Abdominal pain Review of Systems Constitutional: Reports: no symptoms Eye: Reports: no symptoms ENT: Reports: no symptoms Respiratory: Reports: no symptoms Cardiovascular: Reports: no symptoms Gastrointestinal: Reports: abdominal pain, nausea, vomiting Genitourinary: Reports: no symptoms Musculoskeletal: Reports: no symptoms Skin: Reports: no symptoms Psychiatric: Reports: no symptoms Neurological: Reports: no symptoms Endocrine: Reports: no symptoms Hematologic/Lymphatic: Reports: no symptoms Physical Exam General Appearance: no apparent distress, alert HEENT: normocephalic, atraumatic, PERRL, EOMI Neck: non-tender, normal alignment, supple, normal inspection Respiratory/Chest: chest wall non-tender, lungs clear, normal breath sounds Cardiovascular/Chest: normal rate, regular rhythm Abdomen: soft, tender Extremities: normal range of motion, non-tender, normal inspection Skin Exam: normal pigmentation, warm/dry Neurologic: plywood patcher II-XII grossly normal, alert, oriented x 3 Last 24 Hour Vital Signs Date Time Temp Pulse Resp B/P Pulse Ox O2 Delivery O2 Flow Rate FiO2 07/21/16 08:00 97.3 78 18 110/64 99 Room Air 07/21/16 04:08 97.0 66 20 117/67 100 Room Air 07/21/16 04:00 78 07/21/16 00:10 97.9 65 18 113/73 98 Room Air 07/21/16 00:00 65 07/20/16 20:00 74 07/20/16 20:00 97.2 66 18 120/73 99 Room Air 07/20/16 16:00 73 07/20/16 16:00 97.8 66 18 110/69 99 Room Air 07/20/16 13:31 97.9 07/20/16 11:49 62 07/20/16 11:32 97.9 69 18 110/67 99 Room Air 07/20/16 09:51 97.9 Intake and Output 07/20/16 07/21/16 19:00 07:00 Intake Total 802.5 ml 450 ml Balance 802.5 ml 450 ml Intake Oral 240 ml IV Total 562.5 ml 450 ml # Voids 2 2 Height (Feet): 4 Height (Inches): 9.00 Weight (Pounds): 119 Medications Current Medications Medications (Trade) Dose Ordered Sig/Kevin Route PRN Reason Start Time Stop Time Status Last Admin Dose Admin Acetaminophen (Tylenol) 650 mg Q6H PRN ORAL Mild Pain/Temp > 100.5 07/19/16 22:45 08/18/16 22:44 07/20/16 08:52 Diphenhydramine HCl (Benadryl) 25 mg Q4H PRN ORAL Itching 07/19/16 22:45 08/18/16 22:44 Ranitidine HCl 150 mg 150 mg DAILY ORAL 07/20/16 09:00 08/19/16 08:59 07/20/16 08:52 Sodium Chloride (0.45% NS 1000ml) 1,000 ml @ 75 mls/hr [id number] IV 07/19/16 22:45 08/18/16 22:44 07/21/16 04:02 Tramadol HCl (Ultram) 50 mg Q6H PRN ORAL Moderate Pain (Pain Scale 4-6) 07/20/16 11:45 07/27/16 11:44 07/20/16 18:54 Assessment/Plan Problem List: (1) Allergic drug reaction ICD Codes: T78.40XA - Allergy, unspecified, initial encounter SNOMED: 898027433 Qualifiers: Qualified Codes: T78.40XA - Allergy, unspecified, initial encounter (2) Gastritis ICD Codes: K29.70 - Gastritis, unspecified, without bleeding SNOMED: [id number] (3) Abdominal pain ICD Codes: R10.9 - Unspecified abdominal pain SNOMED: 96207399 Qualifiers: Qualified Codes: R10.13 - Epigastric pain Assessment/Plan Patient will be continued on Tramadol as needed. Pt was d/w Dr. Landers and he concurred. Thank you for the courtesy of this consultation. SILVIANO GARCIA Jul 21, 2016 09:08
--- NOTE | 2016-07-21 09:12 | Endoscopy Procedure Note ---
Endoscopy Procedure Note Indication for Procedure: abd pain,? UGIB Procedures Performed: EGD Operative Findings/Diagnosis: normal Specimen: yes Pt Tolerated Procedure Well: Yes Estimated Blood Loss: none Anesthesiologist: see report Anesthesia: MAC Medication Given: see anesthesia record 50 yrs or older w/o bx or poly: Not Applicable 10yrs. F/U not recommended: Not Applicable If not recommended, why?: ANGIE CARTWRIGHT Jul 21, 2016 09:12
--- NOTE | 2016-07-21 09:13 | Immediate Post-Op Evaluation ---
Immediate Post-Op Evalulation Immediate Post-Op Evalulation Procedure: EGD Date of Evaluation: Jul 21, 2016 Time of Evaluation: 09:13 IV Fluids: 500 Blood Pressure Systolic: 107 Blood Pressure Diastolic: 67 Pulse Rate: 78 Respiratory Rate: 14 O2 Sat by Pulse Oximetry: 100 Temperature (Fahrenheit): 97.5 Nausea: No Vomiting: No Complications none Patient Status: awake, reacts, patent Hydration Status: adequate Drug: none WAYNE RIVAS CRNA Jul 21, 2016 09:13
--- NOTE | 2016-07-21 09:13 | Brief Operative Note ---
Immediate Post Operative Note Operative Note Chief Complaint: abd pain, ? UGIB Pre-op Diagnosis: abd pain, hematemesis Procedure: egd/bx Post-op Diagnosis: normal Surgeon: terri Anesthesiologist: see report Anesthesia: MAC Specimen: none Complications: none Condition: stable Estimated Blood Loss: none Drains: none Implant(s) used?: No ANGIE CARTWRIGHT Jul 21, 2016 09:13
--- NOTE | 2016-07-21 09:15 | Anethesia Preoperative Eval ---
Anesthesia Pre-op PMH/ROS General Date of Evaluation: Jul 21, 2016 Time of Evaluation: 08:45 Anesthesiologist: ibis ASA Score: ASA 2 Mallampati Score Class I : Soft palate, uvula, fauces, pillars visible Class II: Soft palate, uvula, fauces visible Class III: Soft palate, base of uvula visible Class IV: Only hard plate visible Mallampati Classification: Class II Surgeon: margaret Diagnosis: abdominal pain Surgical Procedure: EGD Anesthesia History: none Family History: no anesthesia problems Allergies: Coded Allergies: FENTANYL (Verified Allergy, Severe, Elevated HR, rash, and SOB, 07/19/16) Medications: see eMAR Past Medical History Cardiovascular: Denies: CAD, HTN, HI, arrhythmia, other, valve dz Pulmonary: Denies: COPD, MICHA, asthma, other Gastrointestinal/Genitourinary: Denies: CRI, ESRD, GERD, other Neurologic/Psychiatric: Denies: CVA, TIA, dementia, depression/anxiety, other Endocrine: Denies: DM, hypothyroidism, other, steroids HEENT: Denies: AKIACHAK (L), AKIACHAK (R), cataract (L), cataract (R), glaucoma, other Hematology/Immune: Denies: DVT, anemia, bleeding disorder, other Musculoskeletal/Integumentary: Denies: DDD, DJD, OA, RA, edema, other PSxH Narrative: unknown Anesthesia Pre-op Phys. Exam Physician Exam Last Vital Signs Date Time Temp Pulse Resp B/P Pulse Ox O2 Delivery O2 Flow Rate FiO2 07/21/16 08:00 97.3 78 18 110/64 99 Room Air Neurologic: CN 2-12 intact Cardiovascular: RRR Respiratory: CTA Gastrointestinal: S/NT/ND Airway Exam Mallampati Score: Class II MO: full ROM: full Dentures: no lower, no upper Anesthesia Pre-op A/P Labs Urine Test hcg neg Studies Pre-op Studies: EKG - sr Risk Assessment & Plan Plan: mac Status Change Before Surgery: No Pre-Antibiotics Drug: none WAYNE RIVAS CRNA Jul 21, 2016 09:15
--- NOTE | 2016-07-21 10:33 | 48 Hour Post Anesthesia Eval ---
Post Anesthesia Evaluation Procedure: EGD Date of Evaluation: Jul 21, 2016 Time of Evaluation: 10:32 Blood Pressure Systolic: 101 0: 65 Pulse Rate: 74 O2 Sat by Pulse Oximetry: 99 Airway: patent Nausea: No Vomiting: No Hydration Status: adequate Mental Status/LOC: patient returned to baseline Follow-up care needed: N/A WAYNE RIVAS CRNA Jul 21, 2016 10:33
--- NOTE | 2016-07-21 12:26 | General Progress Note ---
Assessment/Plan Problem List: (1) Gastritis ICD Codes: K29.70 - Gastritis, unspecified, without bleeding SNOMED: 0579974 (2) Abdominal pain ICD Codes: R10.9 - Unspecified abdominal pain SNOMED: 95034449 Qualifiers: Qualified Codes: R10.13 - Epigastric pain (3) Allergic drug reaction ICD Codes: T78.40XA - Allergy, unspecified, initial encounter SNOMED: 642551912 Qualifiers: Qualified Codes: T78.40XA - Allergy, unspecified, initial encounter Status: progressing Assessment/Plan no abdominal pain dc home Subjective ROS Limited/Unobtainable: Yes Allergies: Coded Allergies: FENTANYL (Verified Allergy, Severe, Elevated HR, rash, and SOB, 07/19/16) Objective Last 24 Hour Vital Signs Date Time Temp Pulse Resp B/P Pulse Ox O2 Delivery O2 Flow Rate FiO2 07/21/16 11:43 97.5 76 18 103/68 98 Room Air 07/21/16 10:33 74 99 07/21/16 09:35 98.0 68 20 114/77 99 Room Air 07/21/16 09:15 63 20 110/72 100 Room Air 07/21/16 09:13 78 14 100 07/21/16 09:10 64 20 109/75 100 Room Air 07/21/16 09:05 97.8 74 20 107/75 100 Room Air 07/21/16 08:00 97.3 78 18 110/64 99 Room Air 07/21/16 07:41 67 07/21/16 04:08 97.0 66 20 117/67 100 Room Air 07/21/16 04:00 78 07/21/16 00:10 97.9 65 18 113/73 98 Room Air 07/21/16 00:00 65 07/20/16 20:00 74 07/20/16 20:00 97.2 66 18 120/73 99 Room Air 07/20/16 16:00 73 07/20/16 16:00 97.8 66 18 110/69 99 Room Air 07/20/16 13:31 97.9 Intake and Output 07/20/16 07/21/16 19:00 07:00 Intake Total 802.5 ml 450 ml Balance 802.5 ml 450 ml Intake Oral 240 ml IV Total 562.5 ml 450 ml # Voids 2 2 Height (Feet): 4 Height (Inches): 9.00 Weight (Pounds): 119 Simeon Dangelo MD Jul 21, 2016 12:26
[2016-07-21] MEDS ORDERED: 1/2 NS 1000ml IV ONE (12:54)
--- NOTE | 2016-07-21 21:38 | Progress Note ---
DATE: 07/21/2016 SUBJECTIVE: The patient is calm, in no acute distress. She reported to the perinatal social worker, Nannette yesterday that when the episode of loss of consciousness happened, her eyes were closed and she was hearing the staff telling her to open her eyes. She stated that she attempted to do so, however, she was unable to do that. She then denied that she was taking her symptoms. She does not endorse any depressive or manic symptoms. No psychotic symptoms. The social service director spoke with sister at times, there is no acute events happening in her life and however there has been issues with her boyfriend. The patient is not endorsing any suicidal or homicidal ideation. Medically she has been cleared and there has been no evidence of anaphylactic shock. MENTAL STATUS EXAMINATION: Alert and oriented x3. Mood is anxious. Affect is constricted, congruent with mood. Thought process is linear. Thought content, no suicidal or homicidal ideation. No delusions. No auditory or visual hallucinations. Cognition is intact. Insight and judgment is impaired. ASSESSMENT: Rule out conversion disorder, . We will continue to follow and readjust the medications. Kole Funes M.D. DR: SALVADOR JOB#: [id number] CC:
--- NOTE | 2016-07-22 14:01 | Discharge Summary ---
Discharge Summary Hospital Course Date of Admission Jul 19, 2016 at 19:50 Date of Discharge Jul 21, 2016 at 12:55 Admitting Diagnosis - allergic reaction HPI Sharon Gallo is a 20 year old female who was admitted on Jul 19, 2016 at 19:50 for Allergic Reaction Hospital Course [id number] Discharge Discharge Disposition Patient was discharged to Home (01) Discharge Diagnoses: Kaylin Keene NP Jul 22, 2016 14:01
--- NOTE | 2016-07-23 02:08 | Discharge Summary 2 SIG ---
DATE OF ADMISSION: 07/19/2016 DATE OF DISCHARGE: 07/21/2016 CONSULTANTS: 1. Handy Diaz M.D. 2. Sae Landers M.D. 3. Kole Funes M.D. 4. Devante Blanco M.D. HISTORY OF PRESENT ILLNESS: The patient is an unfortunate 20-year-old female, who presented to ED after increased epigastric pain. She developed gradual onset of symptoms for the past few days and had previous similar episodes without any improvement. On evaluation at ED, the ultrasound of the abdomen was unremarkable. The patient has history of peptic ulcer disease and has a possible allergic reaction to fentanyl. She became unresponsive after receiving Fentanyl. Dr. Diaz was consulted for evaluation of abdominal pain, vomiting, and hematemesis . She underwent upper gastrointestinal endoscopy on 07/21/[address] Blanco was also consulted and neurologic exam was essentially normal with episode of unresponsiveness after receiving fentanyl was possible acute toxic encephalopathy secondary to medication. Dr. Funes was consulted and assessed conversion disorder. Pain management consult was also done and was given tramadol q. 6 hours p.r.n. pain. She was tolerating diet and the patient was eventually discharged home. FINAL DIAGNOSES: 1. Acute toxic encephalopathy. 2. Gastritis. 3. Conversion disorder. 4. Allergic-type reaction. 5. Gastritis. Simeon Dangelo M.D. I have been assigned to dictate discharge summary on this account and I was not involved in the patient's management. Kaylin Keene N.P. DR: DERIAN JOB#: [id number] CC: CHRISTINE
--- NOTE | 2016-07-29 00:09 | Operative Note - Dictated ---
DATE OF OPERATION: 07/21/2016 PROCEDURE: Upper gastroendoscopy with biopsy. SURGEON: Handy Diaz M.D. ANESTHESIA: Please see the separate anesthesiologist's notes for details. PRE-ENDOSCOPIC DIAGNOSIS: Upper gastrointestinal bleeding. POST-ENDOSCOPIC DIAGNOSIS: Normal, status post biopsy. DESCRIPTION OF PROCEDURE: The procedure, its risks, indications, alternatives, and possible complications were explained to the patient. Informed consent was obtained. The patient was then sedated in the left lateral decubitus position. A diagnostic upper endoscope was introduced through the oropharynx and advanced to the duodenum. The endoscope was removed and examination showed normal appearance. Biopsies were sent to pathology for review. The patient was sent to recovery in good condition. RECOMMENDATIONS: 1. Followup biopsy results. 2. Resume oral diet. Handy Diaz M.D. DR: Alexis JOB#: [id number] CC:
== END 2016-07-21 12:55 | disposition home or self-care (01) | DRG 92 ==
LOC: EMR 13:46 → 2E 19:50 → EDBEDREQ 20:07 → 2E 20:45
PROC: 0DB68ZX Excision of Stomach, Via Natural or Artificial Opening Endoscopic, Diagnostic (ICD-10-PCS; principal; 2016-07-21 08:55)
DX: G92 Toxic encephalopathy (principal); K92.0 Hematemesis; R10.13 Epigastric pain; R00.1 Bradycardia, unspecified; F44.9 Dissociative and conversion disorder, unspecified; K29.70 Gastritis, unspecified, without bleeding; T40.4X5A Adverse effect of other synthetic narcotics, initial encounter; Y92.019 Unspecified place in single-family (private) house as the place of occurrence of the external cause
CPT/HCPCS: 36415; 76700; 80048; 80053; 80300; 81003; 81025; 82962; 83690; 84443; 84484; 85007; 85025; 85610; 85730; 93005; 93306; 94003; 94150; J2405